=== PATIENT | male | born 1935 | race Caucasian/White ===

== ENCOUNTER 2020-09-28 10:51 | Outpatient (CLI) | payer MEDICARE, OTHER ==
[2020-09-29 04:20] LABS: SARS-CoV-2 PCR by NAA Not Detected (NotDetected)
== END 2020-09-28 10:52 | disposition home or self-care (01) ==
LOC: CSHLAB 10:51
PROVIDERS: ATTEND Surgery
DX: Z20.822 Contact with and (suspected) exposure to COVID-19 (principal); K40.90 Unilateral inguinal hernia, without obstruction or gangrene, not specified as recurrent
CPT/HCPCS: 87635; U0003; U0005

== ENCOUNTER 2020-10-01 11:20 | Day surgery (SDC) | payer MEDICARE, OTHER ==
[2020-09-29 15:26] VITALS: BMI 24.9
[~2020-10-01 11:20] MED LIST: Bupivacaine PF 0.5% 30 ML VIAL ONE; EPINEPHrine 1 MG/ML AMP ONE; Lidocaine 1% MPF 2 ML VIAL ONE
[2020-10-01] MEDS ORDERED: Fentanyl 100 MCG/2 ML VIAL ONE (12:03)
[2020-10-01] MEDS ORDERED: PROPOFOL 20 ML ONE (12:03)
[2020-10-01] MEDS ORDERED: Glycopyrrolate 0.2 MG/ML 5 ML SYRINGE ONE (12:04)
[2020-10-01] MEDS ORDERED: Ondansetron PF 4 MG/2 ML Vial ONE (12:04)
[2020-10-01] MEDS ORDERED: Lidocaine 1% PF 5 ML VIAL ONE (12:04)
[2020-10-01] MEDS ORDERED: Dexamethasone 4 mg/ml Vial ONE (12:04)
[2020-10-01] MEDS ORDERED: SUGAMMADEX SODIUM 500 MG/5 ML VIAL ONE (13:06)
[2020-10-01] MEDS ORDERED: traMADol HCl 50 MG TAB PO PRN (13:31)
[2020-10-01] MEDS ORDERED: Morphine 4 MG/ML VIAL ONE (13:45)
== END 2020-10-01 14:45 | disposition home or self-care (01) ==
LOC: CSHSDC 11:20
PROVIDERS: ATTEND Surgery
PROC: 0YU64JZ Supplement Left Inguinal Region with Synthetic Substitute, Percutaneous Endoscopic Approach (ICD-10-PCS; principal; 2020-10-01)
DX: K40.90 Unilateral inguinal hernia, without obstruction or gangrene, not specified as recurrent (principal)
CPT/HCPCS: J0171; J1100; J2270; J2405; J2704; J3010; J3490; S0020